=== PATIENT | female | born 1965 | race Caucasian/White ===

== ENCOUNTER 2022-02-05 15:18 | Emergency (ER) | payer OTHER, SELFPAY ==
[2022-02-05 15:25] VITALS: BP 176/111; PULSE 113; RESP 16; TEMP 36.8; O2SAT 98; BMI 30.2
[2022-02-05 16:25] VITALS: PULSE 104; O2SAT 98
[2022-02-05 16:26] VITALS: BP 177/115; PULSE 117; O2SAT 97
[2022-02-05 16:30] VITALS: PULSE 124; O2SAT 99
--- NOTE | 2022-02-05 16:49 | ED.BACK ---
HPI - Back Pain/Injury General Chief Complaint: Back Injury/Pain Stated Complaint: Shooting Pain R Hip/Leg Time Seen by Provider: 02/05/22 16:22 History of Present Illness HPI Narrative: 56-year-old woman presenting to the emergency department accompanied by her significant other with complaint of pain is sharp and stabbing and aching in quality radiating into her right thigh that seems to be also causing subsequent muscle cramping. She recalls a twinge of discomfort a few weeks ago when went to get up from a lying position and then worsened a little over week ago moving a box at work and subsequently escalating. She last took 600 mg of ibuprofen. She is also as evidenced by the smell in the room been trying IcyHot. Extending her leg at the knee in particular or lifting her right leg will cause a flare of pain. Pain has been moving down the thigh but at this point is still stopping around the knee. At this point appears desperate to get some relief of her discomfort, at least ?take the edge off?. Does not typically take pain medications. She has appropriate questions regarding addiction as we are discussing options of pain medication. Denies hematuria dysuria. Denies more significant trauma. No prior history of back issues really. No rashes noted. Pain can also radiate into the right groin area. Related Data Home Medications Medication Instructions Recorded Confirmed multivitamin 1 tab PO DAILY 02/05/22 02/05/22 Allergies Allergy/AdvReac Type Severity Reaction Status Date / Time No Known Drug Allergies Allergy Verified 02/05/22 15:30 Review of Systems Status of ROS: Reports: 6 or more systems reviewed and unremarkable except as noted in History and below [facility] Social History Smoking Status: Never smoker How often do you have a drink containing alcohol: never AUDIT-C Alcohol total score: 0 Non-prescribed substance use: denies use service: No Exam Narrative: Exam Narrative: A pleasant. Carefully casually groomed. Trembling in apparent discomfort. Skin is warm and dry. No evidence of trauma. No rash. She has breathing easily. Seems generally tense though. Cardiovascular is tachycardic There is no clear pain to palpation of the back. No deformity. She indicates where she thinks is the source of the discomfort lateral to the right SI joint but deep to that and the upper gluteal musculature. Rotates the hip without marked increase in pain Straight leg raise intensifies pain notably. She has good strength to flexion extension at the knee though flexion seems a little weaker or exacerbating her pain. Const: Vital Signs, click to edit/add: Vital Signs - 24 hr 02/05/22 15:25 Temperature 98.2 F Pulse Rate [Pulse Oximeter] 113 H Respiratory Rate 16 Blood Pressure [Ri ght Upper Arm] 176/111 H Pulse Oximetry 98 Oxygen Delivery Me thod Room Air Documenting provider has reviewed patient's vital signs: yes Course Course Hospital Course: Discussed options for pain relief. Settled on 1 mg IM Dilaudid to provide more immediate relief. Reevaluation(s) Reevaluation #1: much improved after injection. relaxed. though pain still present Vital Signs Vital signs: Initial Vital Signs Temperature 98.2 F 02/05/22 15:25 Temperature Source Oral 02/05/22 15:25 Pulse Rate 113 H 02/05/22 15:25 Pulse Rhythm 02/05/22 15:25 Pulse Strength 3+ Normal 02/05/22 15:25 Respiratory Rate 16 02/05/22 15:25 Blood Pressure 176/111 H 02/05/22 15:25 Blood Pressure Mean 132 02/05/22 15:25 Blood Pressure Position Standing 02/05/22 15:25 Pulse Oximetry 98 02/05/22 15:25 Oxygen Delivery Method 02/05/22 15:25 Vital Signs Temperature 98.2 F 02/05/22 15:25 Pulse Rate 113 H 02/05/22 15:25 Respiratory Rate 16 02/05/22 15:25 Blood Pressure 176/111 H 02/05/22 15:25 Pulse Oximetry 98 02/05/22 15:25 Oxygen Delivery Method 02/05/22 15:25 Temperature 98.2 F 02/05/22 15:25 Pulse Rate 86 02/05/22 17:24 Respiratory Rate 16 02/05/22 15:25 Blood Pressure 177/115 H 02/05/22 16:26 Pulse Oximetry 97 02/05/22 17:24 Oxygen Delivery Method 02/05/22 17:24 MDM - Back Pain/Injury MDM Narrative Medical decision making narrative: absent trauma I don't think that available imaging modalities would offer much Discharge Plan Discharge Clinical Impression: Radicular leg pain Patient Disposition: Home w/ Parent or Adult Condition: Improved Additional Instructions: Hydrate. See handout for some stretches that you might begin in a few days once things start to calm down. Your limit on acetaminophen per dose is 1000 mg. The hydrocodone, ibuprofen, acetaminophen all can be combined at the same time including the prednisone and cyclobenzaprine as well. An alternative to the ibuprofen might be up to 500 mg of naproxen 2 times daily which also can be combined with any of the above except for ibuprofen at the same time. If you find the topical treatments/creams helpful, feel free to continue. Lidocaine patches over the counter might also be helpful though I feel like this is deeper to what they might affect. I am not sure right now how you might respond to cold packs or warm packs as I think that either might benefit or cause you more discomfort. It is unclear to me at this time precisely what the origin of your pain is. Could be some impingement of the sciatic nerve bundle or higher up an impingement of a nerve root. It seems to be excessive symptoms for sacroiliac disease. Pending improvement, further exam and imaging is warranted. I would though tomorrow call for an appointment with your primary care provider for later in the week if possible. Take prednisone as 60 mg daily for 2 days then 40 mg daily for 5 days then 20 mg daily for 2 days. On the days that you might be taking opiates, consider taking senna-containing product to help with bowel motility. Prescriptions: No Action multivitamin Tablet 1 tab PO DAILY Stand Alone Forms: MyHealth Info Instructions
[2022-02-05] MEDS: HYDROmorphone 0.5 mg/0.5 ml inj 1 MG IM (16:51)
[2022-02-05 17:24] VITALS: PULSE 86; O2SAT 97
== END 2022-02-05 17:25 | disposition home or self-care (01) ==
PROVIDERS: Emergency Provider Family Medicine; PCP Family Medicine
DX: M54.10 Radiculopathy, site unspecified (principal)
CPT/HCPCS: 96372; 99283; 99284; J1170